=== PATIENT | male | born 1960 | race Caucasian/White ===

== ENCOUNTER 2016-10-29 12:51 | Inpatient (IN) | payer SELFPAY ==
[~2016-10-29] VITALS: Ht 165.1 cm; Wt 76.7 kg
[2016-10-29] MEDS ORDERED: LORAZEPAM 2MG/ML CPJ ONE (14:53)
[2016-10-29] MEDS ORDERED: LORAZEPAM 2MG/ML CPJ IV ONE (15:15)
[2016-10-29] MEDS ORDERED: SODIUM CHLORIDE 0.9% 1,000 ML IV ONE (15:15)
[2016-10-29] MEDS ORDERED: CYANOCOBALAMIN 1000MCG/ML VIAL IM ONE (15:15)
[2016-10-29 15:20] LABS: HEMATOCRIT. 29.7 % (42.0-52.0); HEMOGLOBIN. 9.9 g/dL (14.0-18.0); MEAN CORPUSCULAR HEMOGLOBIN 33.6 pg (28.0-32.0); MEAN CORPUSCULAR VOLUME 100.5 fL (80.0-94.0); MEAN PLATELET VOLUME 8.5 fl (7.4-10.4); RED BLOOD CELL COUNT 2.95 mill/uL (4.7-6.1); RED CELL DISTRIBUTION WIDTH 22.3 % (11.6-14.6)
[2016-10-29 15:24] LABS: PLATELET 28 x1000/uL (130-400)
[2016-10-29 15:25] LABS: INR 1.1; PROTHROMBIN TIME 11.6 sec
[2016-10-29 15:37] LABS: CARBON DIOXIDE 19 mEq/L (21-32); CHLORIDE 93 mEq/L (98-107); ETHANOL BLOOD < 10 mg/dL; TROPONIN I 0.03 ng/mL (0.00-0.04)
[2016-10-29 16:02] LABS: PLATELET ESTIMATE MARKEDLY DECREASED
[2016-10-29] MEDS ORDERED: HYDROCODONE/ACETAMINOPHEN 5/325MG TABLET PO PRN (17:00)
[2016-10-29] MEDS ORDERED: MAGNESIUM/ALUMINUM HYDROXIDE/SIMETHICONE 30ML UDC PO PRN (17:00)
[2016-10-29] MEDS ORDERED: LORAZEPAM 2MG/ML CPJ IV PRN (17:00)
[2016-10-29] MEDS ORDERED: HYDROMORPHONE HCL/PF 2MG/ML CPJ IV PRN (17:00)
[2016-10-29] MEDS ORDERED: ONDANSETRON HCL 4MG/2ML VIAL IV PRN (17:00)
[2016-10-29] MEDS ORDERED: DOCUSATE SODIUM 100MG CAPSULE PO PRN (17:00)
[2016-10-29] MEDS ORDERED: GUAIFENESIN 200MG/10ML SUGAR FREE UDC PO PRN (17:00)
[2016-10-29] MEDS ORDERED: CLONIDINE 0.1MG TABLET PO PRN (17:00)
[2016-10-29] MEDS ORDERED: IPRATROPIUM/ALBUTEROL 0.5-3(2.5)MG/3ML NEB INH PRN (17:00)
[2016-10-29] MEDS ORDERED: DIPHENHYDRAMINE 50MG/ML VIAL IV PRN (17:00)
[2016-10-29] MEDS ORDERED: NA PHOS,M-B/NA PHOS,DI-BA ENEMA 118ML PR PRN (17:00)
[2016-10-29 17:47] LABS: CARBON DIOXIDE 27 mEq/L (21-32); CHLORIDE 96 mEq/L (98-107)
[2016-10-29 19:21] LABS: CLARITY URINE CLEAR (CLEAR); COLOR URINE DARK YELLOW (YELLOW); GLUCOSE URINE 2+ (NEGATIVE); KETONES URINE TRACE (NEGATIVE); LEUKOCYTE ESTERASE URINE NEGATIVE (NEGATIVE); NITRITE URINE NEGATIVE (NEGATIVE); OCCULT BLOOD URINE 2+ (NEGATIVE); PROTEIN URINE 2+ (NEGATIVE); SPECIFIC GRAVITY URINE 1.018 (1.005-1.030)
[2016-10-29 19:36] LABS: *AMPHETAMINES SCREEN URINE NEGATIVE (NEGATIVE); *BARBITURATES SCREEN URINE NEGATIVE (NEGATIVE); *BENZODIAZEPINES SCREEN URINE NEGATIVE (NEGATIVE); *COCAINE SCREEN URINE NEGATIVE (NEGATIVE); CANNABINOID URINE SCREEN PRESUMTIVE POSITIVE (NEGATIVE); METHADONE URINE SCREEN NEGATIVE (NEGATIVE); OPIATES URINE SCREEN NEGATIVE (NEGATIVE); PHENCYCLIDINE URINE SCREEN NEGATIVE (NEGATIVE)
[2016-10-29 20:23] LABS: HEPATITIS B SURFACE ANTIGEN NEGATIVE
[2016-10-29 20:51] LABS: HEPATITIS B CORE AB IGM NEGATIVE
[2016-10-29 20:53] LABS: HEPATITIS A AB IGM NEGATIVE (NEGATIVE)
[2016-10-29 21:00] VITALS: BP 142/79
[2016-10-29] MEDS ORDERED: DEXTROSE 50% WATER 50ML SYRINGE IV PRN (21:45)
[2016-10-29] MEDS ORDERED: DEXT 5%/0.45% NACL KCL 10MEQ/L 1,000 ML IV SCH (22:00)
[2016-10-29] MEDS: ACETAMINOPHEN 325MG TABLET PO PRN (22:01)
[2016-10-30] VITALS: BP 128/79
[2016-10-30 04:00] VITALS: BP 120/94
[2016-10-30] MEDS ORDERED: POTASSIUM CHLORIDE 20MEQ TABLET SR PO NR (04:30)
[2016-10-30 07:26] LABS: BASOPHILS % 0.7 % (0.0-2.0); EOSINOPHILS % 0.5 % (0.0-5.0); HEMATOCRIT. 29.7 % (42.0-52.0); HEMOGLOBIN. 10.1 g/dL (14.0-18.0); LYMPHOCYTES % 16.1 % (20.0-50.0); MEAN CORPUSCULAR HEMOGLOBIN 33.7 pg (28.0-32.0); MEAN PLATELET VOLUME 9.3 fl (7.4-10.4); MONOCYTES % 12.4 % (2.0-8.0); NEUTROPHILS % 70.3 % (40.0-76.0); RED CELL DISTRIBUTION WIDTH 22.2 % (11.6-14.6)
[2016-10-30] MEDS: BLOOD SUGAR DIAGNOSTIC STRIP TEST SCH ×4 (07:40→21:40)
[2016-10-30 08:00] VITALS: BP_SYST 145; BP_SYST 94; BP_DIAS 41; BP_DIAS 67
[2016-10-30 08:03] LABS: PLATELET ESTIMATE MARKEDLY DECREASED
[2016-10-30 08:04] LABS: PLATELET 28 x1000/uL (130-400)
[2016-10-30] MEDS: INSULIN LISPRO 100 UNITS/ML SUBCUT SCH ×4 (08:10→21:00)
[2016-10-30 08:30] LABS: CARBON DIOXIDE 23 mEq/L (21-32); CHLORIDE 100 mEq/L (98-107)
[2016-10-30 08:40] LABS: HDL CHOLESTEROL 58 mg/dL (40-59); LDL CHOLESTEROL 56 mg/dL (5-100); T4 FREE 0.97 ng/dL (0.76-1.46); TROPONIN I 0.05 ng/mL (0.00-0.04)
[2016-10-30] MEDS: ASPIRIN 81MG EC TABLET PO SCH (08:54)
[2016-10-30] MEDS: ACETAMINOPHEN 325MG TABLET PO PRN ×2 (08:54→20:48)
[2016-10-30 12:00] VITALS: BP_SYST 106; BP_SYST 116; BP_DIAS 38; BP_DIAS 65
[2016-10-30] MEDS: DEXT 5%/0.45% NACL KCL 10MEQ/L 1,000 ML IV SCH (14:37)
[2016-10-30 16:00] VITALS: BP 112/81
[2016-10-30] MEDS: THIAMINE HCL 100MG TABLET PO SCH (16:17)
[2016-10-30 20:00] VITALS: BP 103/66
[2016-10-31 00:05] VITALS: BP 115/62
[2016-10-31 04:02] VITALS: BP 100/58
[2016-10-31 06:27] LABS: BASOPHILS % 0.7 % (0.0-2.0); EOSINOPHILS % 1.1 % (0.0-5.0); HEMATOCRIT. 25.7 % (42.0-52.0); HEMOGLOBIN. 8.8 g/dL (14.0-18.0); MEAN CORPUSCULAR HEMOGLOBIN 34.2 pg (28.0-32.0); MEAN CORPUSCULAR VOLUME 99.8 fL (80.0-94.0); MEAN PLATELET VOLUME 9.7 fl (7.4-10.4); MONOCYTES % 11.8 % (2.0-8.0); NEUTROPHILS % 65.4 % (40.0-76.0); RED BLOOD CELL COUNT 2.58 mill/uL (4.7-6.1); RED CELL DISTRIBUTION WIDTH 21.8 % (11.6-14.6)
[2016-10-31 06:50] LABS: PLATELET 36 x1000/uL (130-400)
[2016-10-31 07:07] LABS: CARBON DIOXIDE 23 mEq/L (21-32); CHLORIDE 102 mEq/L (98-107)
[2016-10-31] MEDS: BLOOD SUGAR DIAGNOSTIC STRIP TEST SCH ×4 (07:40→19:53)
[2016-10-31 08:00] VITALS: BP 130/71
[2016-10-31] MEDS: INSULIN LISPRO 100 UNITS/ML SUBCUT SCH ×4 (08:10→19:56)
[2016-10-31] MEDS: ASPIRIN 81MG EC TABLET PO SCH (09:09)
[2016-10-31] MEDS: THIAMINE HCL 100MG TABLET PO SCH (09:10)
[2016-10-31] MEDS: DEXT 5%/0.45% NACL KCL 10MEQ/L 1,000 ML IV SCH ×2 (09:11→19:49)
[2016-10-31 12:00] VITALS: BP 109/80
[2016-10-31] MEDS: ACETAMINOPHEN 325MG TABLET PO PRN (15:38)
[2016-10-31 16:00] VITALS: BP 98/64
[2016-10-31 20:00] VITALS: BP 101/58
[2016-11-01] VITALS: BP 120/69
[2016-11-01 04:00] VITALS: BP 112/76
[2016-11-01] MEDS: BLOOD SUGAR DIAGNOSTIC STRIP TEST SCH (05:55)
[2016-11-01] MEDS: DEXT 5%/0.45% NACL KCL 10MEQ/L 1,000 ML IV SCH (05:55)
[2016-11-01] MEDS: ACETAMINOPHEN 325MG TABLET PO PRN (07:45)
[2016-11-01 08:00] VITALS: BP 121/72
[2016-11-01] MEDS: INSULIN LISPRO 100 UNITS/ML SUBCUT SCH (08:10)
[2016-11-01] MEDS: THIAMINE HCL 100MG TABLET PO SCH (08:22)
[2016-11-01] MEDS: ASPIRIN 81MG EC TABLET PO SCH (08:22)
[2016-11-01 09:20] VITALS: BP 121/72
[2016-11-01 12:00] VITALS: BP 120/78
== END 2016-11-01 14:05 | disposition home or self-care (01) | DRG 775 ==
LOC: ER 13:29 → 7WST 16:09 → ENRESERV 16:19 → EDBEDREQ 16:31 → 7WST 10-30 07:23
PROVIDERS: ADMIT Internal Medicine; ATTEND Internal Medicine
DX: F10.229 Alcohol dependence with intoxication, unspecified (principal); F10.231 Alcohol dependence with withdrawal delirium; N17.0 Acute kidney failure with tubular necrosis; E43 Unspecified severe protein-calorie malnutrition; D69.6 Thrombocytopenia, unspecified; D51.9 Vitamin B12 deficiency anemia, unspecified; I50.9 Heart failure, unspecified; I11.0 Hypertensive heart disease with heart failure; K70.30 Alcoholic cirrhosis of liver without ascites; E86.0 Dehydration; G40.909 Epilepsy, unspecified, not intractable, without status epilepticus; N39.0 Urinary tract infection, site not specified; D53.9 Nutritional anemia, unspecified; S00.03XA Contusion of scalp, initial encounter; Y90.0 Blood alcohol level of less than 20 mg/100 ml; E87.6 Hypokalemia; I25.10 Atherosclerotic heart disease of native coronary artery without angina pectoris; F12.10 Cannabis abuse, uncomplicated; W18.39XA Other fall on same level, initial encounter; R73.9 Hyperglycemia, unspecified; R80.9 Proteinuria, unspecified; K72.90 Hepatic failure, unspecified without coma; Y93.89 Activity, other specified; Y92.89 Other specified places as the place of occurrence of the external cause; Z68.28 Body mass index [BMI] 28.0-28.9, adult; Z59.0 Homelessness; Y99.8 Other external cause status
CPT/HCPCS: 36415; 70450; 71010; 73522; 73562; 74176; 80048; 80053; 80061; 80305; 81001; 82962; 83036; 83735; 83880; 84439; 84443; 84484; 85025; 85610; 86705; 86709; 86803; 87040; 87077; 87086; 87186; 87340; 93005; 96361; 96374; 97162; 99285; G0482; J1815; J2060; J3420; J7030